=== PATIENT | female | born 1965 | race Caucasian/White ===

== ENCOUNTER 2024-11-16 22:10 | Inpatient (IN) | payer BC ==
[~2024-11-16] VITALS: Ht 160 cm; Wt 88.2 kg
[2024-11-17 00:03] LABS: HEMATOCRIT. 41.4 % (36.0-48.0); HEMOGLOBIN. 12.7 g/dL (12.0-16.0); MEAN CORPUSCULAR HGB CONC 30.7 g/dL (31.0-37.0); MEAN CORPUSCULAR VOLUME 84.6 fL (81.0-99.0); MEAN PLATELET VOLUME 8.5 fl (7.4-10.4); PLATELET 294 x1000/uL (130-400); RED BLOOD CELL COUNT 4.89 mill/uL (4.2-5.4); RED CELL DISTRIBUTION WIDTH 15.8 % (11.6-14.6); WHITE BLOOD COUNT 23.5 x1000/uL (4.5-11.0)
[2024-11-17 00:05] LABS: DIFFERENTIAL COMMENT 1
[2024-11-17 00:10] LABS: INR 1.2; PARTIAL THROMBOPLASTIN TIME 29.6 sec (23.4-31.0)
[2024-11-17 00:13] LABS: CHLORIDE 90 mEq/L (98-107); POTASSIUM 3.8 mEq/L (3.5-5.1); SODIUM 127 mEq/L (136-145)
[2024-11-17 00:14] LABS: CALCIUM 9.4 mg/dL (8.7-10.4)
[2024-11-17 00:19] LABS: CREATININE 1.5 mg/dL (0.6-1.0); UREA NITROGEN BLOOD 29 mg/dL (9-23)
[2024-11-17 00:22] LABS: ETHANOL BLOOD < 10 mg/dL (<10)
[2024-11-17 00:25] LABS: CARBON DIOXIDE < 10 mEq/L (21-32)
[2024-11-17 00:26] LABS: GLUCOSE 607 mg/dL (70-105); TROPONIN I HIGH SENSITIVITY 117 ng/L (3.0-34)
[2024-11-17] MEDS: SODIUM CHLORIDE 0.9% (SEPSIS BOLUS) IV NR (01:01)
[2024-11-17] MEDS: PIPERACILLIN/TAZO 3.375G/50ML 50 ML IV NR (01:01)
[2024-11-17] MEDS ORDERED: HYDROCODONE/ACETAMINOPHEN 5/325MG TABLET PO PRN (01:15)
[2024-11-17] MEDS ORDERED: CLONIDINE 0.1MG TABLET PO PRN ×2 (01:15→11:00)
[2024-11-17] MEDS ORDERED: DOCUSATE SODIUM 100MG CAPSULE PO PRN (01:15)
[2024-11-17] MEDS ORDERED: POTASSIUM CHLORIDE 20MEQ TABLET SR PO PRN (01:15)
[2024-11-17] MEDS ORDERED: ACETAMINOPHEN 325MG TABLET PO PRN ×2 (01:15→11:00)
[2024-11-17] MEDS ORDERED: MAGNESIUM/ALUMINUM HYDROXIDE/SIMETHICONE 30ML UDC PO PRN (01:15)
[2024-11-17] MEDS ORDERED: DEXTROSE 50% WATER 50ML SYRINGE IV PRN ×5 (01:15→11:00)
[2024-11-17] MEDS ORDERED: ONDANSETRON HCL 4MG/2ML INJ IV PRN ×2 (01:15→11:00)
[2024-11-17] MEDS ORDERED: IPRATROPIUM/ALBUTEROL 0.5-3(2.5)MG/3ML NEB HHN PRN ×2 (01:15→11:00)
[2024-11-17] MEDS ORDERED: KCL 20MEQ/100ML PREMIX 100 ML IV PRN ×2 (01:30→11:00)
[2024-11-17] MEDS ORDERED: POTASSIUM CHLORIDE 40 MEQ in SODIUM CHLORIDE 0.9% 230 ML IV PRN (01:30)
[2024-11-17] MEDS ORDERED: INSULIN REGULAR 100U/100ML PMX 100 ML IV SCH ×2 (01:30→12:00)
[2024-11-17] MEDS ORDERED: MAGNESIUM 2 G PREMIX 50 ML IV PRN (01:30)
[2024-11-17] MEDS ORDERED: SODIUM PHOSPHATE 15 MMOL in SODIUM CHLORIDE 0.9% 245 ML IV PRN ×2 (01:30→11:00)
[2024-11-17] MEDS ORDERED: BLOOD SUGAR DIAGNOSTIC STRIP TEST SCH ×2 (01:30→09:00)
[2024-11-17] MEDS ORDERED: INSULIN REGULAR (DRIP) 100 UNITS in SODIUM CHLORIDE 0.9% 99 ML IV SCH (01:30)
[2024-11-17] MEDS: SODIUM CHLORIDE 0.9% 1,000 ML IV SCH ×3 (01:30→12:30)
[2024-11-17] MEDS ORDERED: BLOOD SUGAR DIAGNOSTIC STRIP TEST PRN ×3 (01:30→11:00)
[2024-11-17 02:03] LABS: CARBON DIOXIDE 11 mEq/L (21-32); CHLORIDE 92 mEq/L (98-107); POTASSIUM 3.8 mEq/L (3.5-5.1); SODIUM 128 mEq/L (136-145)
[2024-11-17 02:04] LABS: CALCIUM 9.2 mg/dL (8.7-10.4)
[2024-11-17 02:08] LABS: CREATININE 1.5 mg/dL (0.6-1.0); INR 1.2; PROTHROMBIN TIME 12.8 sec (9.6-11.0)
[2024-11-17 02:09] LABS: UREA NITROGEN BLOOD 32 mg/dL (9-23)
[2024-11-17 02:11] LABS: BETA HYDROXYBUTYRATE 8.2 mMol/L (0.0-0.3)
[2024-11-17 02:31] LABS: BG BASE EXCESS -17.9 mmol/L (-2.0-3.0); BG CARBOXYHEMOGLOBIN 0.6 % (0.5-1.5); BG DEOXYHEMOGLOBIN 7.9 % (0.0-5.0); BG FRACTION INSPIRED OXYGEN 21; BG HCO3 ACT 7.9 mmol/L (21.0-28.0); BG METHEMOGLOBIN 0.3 % (0.5-1.5); BG OXYHEMOGLOBIN 91.2 % (94.0-98.0); BG PCO2 20.7 mmHg (32.0-45.0); BG PH 7.201 (7.350-7.450); BG PO2 70.4 mmHg (83.0-108.0); BG SAMPLE SITE RIGHT BRACHIAL; BG TOTAL HEMOGLOBIN 14.8 g/dL (12.0-16.0); BG VENT MODE ROOM AIR
[2024-11-17] MEDS: SODIUM BICARBONATE 8.4% 50MEQ/50ML SYR IV NR (02:53)
[2024-11-17] MEDS: INSULIN REGULAR (HUMULIN R) 1000UNITS/10ML VIAL IV NR (02:53)
[2024-11-17] MEDS: BLOOD SUGAR DIAGNOSTIC STRIP TEST SCH ×2 (02:53→12:30)
[2024-11-17 02:56] LABS: GLUCOSE 610 mg/dL (70-105)
[2024-11-17] MEDS: VANCOMYCIN 1G PREMIX 200 ML IV NR (02:58)
[2024-11-17] MEDS: INSULIN REGULAR 100U/100ML PMX 100 ML IV SCH ×2 (03:29→15:24)
[2024-11-17] MEDS: DEXT 5%/0.9% NACL 1,000 ML IV SCH ×2 (03:49→20:07)
[2024-11-17] MEDS: ASPIRIN 325MG EC TABLET PO NR (03:52)
[2024-11-17] MEDS: SODIUM BICARBONATE 8.4% 50MEQ/50ML SYR IV ONE (04:20)
[2024-11-17] MEDS: DILTIAZEM HCL 5MG/ML 5ML VIAL IV ONE (05:52)
[2024-11-17] MEDS: SODIUM BICARBONATE 100 MEQ in DEXTROSE 5% WATER 900 ML IV SCH (05:54)
[2024-11-17] MEDS: ENOXAPARIN 40MG/0.4ML SYR SUBCUT SCH (06:53)
[2024-11-17] MEDS ORDERED: NALOXONE HCL 0.4MG/ML VIAL IV PRN (07:30)
[2024-11-17 08:10] LABS: PLATELET ESTIMATE NORMAL
[2024-11-17 08:11] LABS: TOXIC VACUOLATION FEW
[2024-11-17] MEDS: INSULIN LISPRO 100 UNITS/ML SUBCUT SCH (08:20)
[2024-11-17] MEDS: CEFTRIAXONE 1GM/50ML 50 ML IV SCH (08:43)
[2024-11-17 09:26] LABS: CALCIUM 7.5 mg/dL (8.7-10.4)
[2024-11-17 09:31] LABS: CREATININE 1.2 mg/dL (0.6-1.0)
[2024-11-17 09:49] LABS: POTASSIUM 2.7 mEq/L (3.5-5.1)
[2024-11-17] MEDS ORDERED: CEFTRIAXONE 1GM/50ML 50 ML IV SCH (10:00)
[2024-11-17] MEDS: KCL 20MEQ/100ML PREMIX 100 ML IV PRN (11:05)
[2024-11-17] MEDS ORDERED: INSULIN REGULAR (HUMULIN R) 1000UNITS/10ML VIAL IV SCH (12:00)
[2024-11-17] MEDS: PANTOPRAZOLE SODIUM 40 MG/VIAL IV SCH (13:42)
[2024-11-17 13:52] LABS: BG CARBOXYHEMOGLOBIN 0.5 % (0.5-1.5); BG DEOXYHEMOGLOBIN 5.7 % (0.0-5.0); BG FRACTION INSPIRED OXYGEN 40; BG HCO3 ACT 19.7 mmol/L (21.0-28.0); BG METHEMOGLOBIN 0.3 % (0.5-1.5); BG OXYGEN SATURATION 94.3 % (94.0-98.0); BG OXYHEMOGLOBIN 93.5 % (94.0-98.0); BG PCO2 35.2 mmHg (32.0-45.0); BG PH 7.366 (7.350-7.450); BG PO2 69.9 mmHg (83.0-108.0); BG SAMPLE SITE RIGHT BRACHIAL; BG TOTAL HEMOGLOBIN 10.6 g/dL (12.0-16.0); BG VENT MODE NASAL CANNULA
[2024-11-17 14:58] LABS: CLARITY URINE TURBID (CLEAR); COLOR URINE YELLOW (YELLOW); GLUCOSE URINE 3+ (NEGATIVE); KETONES URINE 3+ (NEGATIVE); LEUKOCYTE ESTERASE URINE 1+ (NEGATIVE); NITRITE URINE NEGATIVE (NEGATIVE); OCCULT BLOOD URINE TRACE (NEGATIVE); PH URINE 5.5 (4.5-8.0); PROTEIN URINE 2+ (NEGATIVE); SPECIFIC GRAVITY URINE 1.027 (1.005-1.030)
[2024-11-17 15:04] LABS: COARSE GRANULAR CASTS URINE 0-5 /lpf
[2024-11-17 15:05] LABS: BACTERIA URINE 4+; SQUAMOUS EPITHELIAL CELL URINE 1+ /lpf (RARE/1+); WBC URINE 25-50 /hpf (0-2); YEAST URINE 1+
[2024-11-17 16:25] LABS: HEMATOCRIT. 32.5 % (36.0-48.0); HEMOGLOBIN. 10.6 g/dL (12.0-16.0); MEAN CORPUSCULAR HEMOGLOBIN 25.9 pg (28.0-32.0); MEAN CORPUSCULAR HGB CONC 32.5 g/dL (31.0-37.0); MEAN CORPUSCULAR VOLUME 79.7 fL (81.0-99.0); MEAN PLATELET VOLUME 8.1 fl (7.4-10.4); PLATELET 248 x1000/uL (130-400); RED BLOOD CELL COUNT 4.07 mill/uL (4.2-5.4); RED CELL DISTRIBUTION WIDTH 15.4 % (11.6-14.6); WHITE BLOOD COUNT 16.9 x1000/uL (4.5-11.0)
[2024-11-17 16:28] LABS: D-DIMER 1.15 mg/L FEU (<0.50); INR 1.1; PROTHROMBIN TIME 12.4 sec (9.6-11.0)
[2024-11-17 16:34] LABS: CHLORIDE 102 mEq/L (98-107); POTASSIUM 3.3 mEq/L (3.5-5.1)
[2024-11-17 16:35] LABS: SODIUM 135 mEq/L (136-145)
[2024-11-17 16:38] LABS: CALCIUM 7.8 mg/dL (8.7-10.4); CARBON DIOXIDE 19 mEq/L (21-32)
[2024-11-17 16:42] LABS: CREATINE KINASE MB FRACTION 7.6 ng/mL (0.5-3.6)
[2024-11-17 16:43] LABS: GLUCOSE 290 mg/dL (70-105); UREA NITROGEN BLOOD 30 mg/dL (9-23)
[2024-11-17 16:45] LABS: ALANINE AMINOTRANSFERASE 13 IU/L (10-49); ALBUMIN 2.8 g/dL (3.2-4.8); ASPARTATE AMINOTRANSFERASE 14 IU/L (<34); BILIRUBIN TOTAL 0.2 mg/dL (0.1-1.0); CREATINE KINASE 156 IU/L (34-145)
[2024-11-17 16:46] LABS: BETA HYDROXYBUTYRATE 3.4 mMol/L (0.0-0.3); PROTEIN TOTAL 4.6 g/dL (6.0-8.3)
[2024-11-17 16:47] LABS: BILIRUBIN DIRECT < 0.1 mg/dL (<=3.0)
[2024-11-17 16:49] LABS: DIFFERENTIAL COMMENT 1
[2024-11-17 17:33] LABS: CHLORIDE 103 mEq/L (98-107); POTASSIUM 4.1 mEq/L (3.5-5.1); SODIUM 137 mEq/L (136-145)
[2024-11-17 17:34] LABS: CARBON DIOXIDE 22 mEq/L (21-32)
[2024-11-17 17:41] LABS: PHOSPHORUS 2.8 mg/dL (2.5-4.9)
[2024-11-17 18:10] LABS: PLATELET ESTIMATE NORMAL
[2024-11-17 18:28] LABS: TROPONIN I HIGH SENSITIVITY < 4 ng/L (3.0-34)
[2024-11-17 21:00] VITALS: BP_SYST 122; BP_SYST 97; BP_DIAS 50; BP_DIAS 84; PULSE 88; PULSE 99; RESP 18; RESP 26; TEMP 36.9184; O2SAT 96
[2024-11-17 21:15] VITALS: BP 97/45; PULSE 82; RESP 22; O2SAT 94
[2024-11-17 21:30] VITALS: BP 93/44; PULSE 86; RESP 28; O2SAT 92
[2024-11-17 21:45] VITALS: BP 96/53; PULSE 85; RESP 27; O2SAT 90
[2024-11-17 22:00] VITALS: BP 99/58; PULSE 87; RESP 16; TEMP 36.9474; O2SAT 87
[2024-11-17 23:00] VITALS: BP 108/57; PULSE 88; RESP 18; O2SAT 96
[2024-11-18] VITALS (55 sets, daily range): BP systolic 48–129; BP diastolic 27–79; PULSE 74–87; RESP 13–34; TEMP 36.50292–37.05852; O2SAT 91–99
[2024-11-18 00:22] LABS: CHLORIDE 105 mEq/L (98-107); SODIUM 137 mEq/L (136-145)
[2024-11-18 00:23] LABS: CALCIUM 7.7 mg/dL (8.7-10.4); CARBON DIOXIDE 24 mEq/L (21-32)
[2024-11-18 00:28] LABS: CREATININE 0.8 mg/dL (0.6-1.0); GLUCOSE 251 mg/dL (70-105); UREA NITROGEN BLOOD 28 mg/dL (9-23)
[2024-11-18 00:30] LABS: PHOSPHORUS 1.3 mg/dL (2.5-4.9)
[2024-11-18] MEDS: VANCOMYCIN 1.25GM PMX (XELLIA) 250 ML IV NR (00:31)
[2024-11-18] MEDS: MAGNESIUM 2 G PREMIX 50 ML IV PRN (00:49)
[2024-11-18] MEDS ORDERED: DEXTROSE 50% WATER 50ML SYRINGE IV PRN (01:15)
[2024-11-18] MEDS: INSULIN GLARGINE 100 UNITS/ML SUBCUT NR (01:30)
[2024-11-18] MEDS: POTASSIUM CHLORIDE 40 MEQ in SODIUM CHLORIDE 0.9% 230 ML IV PRN (02:42)
[2024-11-18] MEDS: SODIUM PHOSPHATE 15 MMOL in DEXT 5% WATER 245 ML IV PRN (05:31)
[2024-11-18 06:06] LABS: CARBON DIOXIDE 21 mEq/L (21-32); CHLORIDE 104 mEq/L (98-107); POTASSIUM 3.1 mEq/L (3.5-5.1); SODIUM 137 mEq/L (136-145)
[2024-11-18 06:07] LABS: CALCIUM 8.1 mg/dL (8.7-10.4)
[2024-11-18 06:10] LABS: TRIGLYCERIDE 291 mg/dL (0-150)
[2024-11-18 06:11] LABS: HEMATOCRIT. 32.4 % (36.0-48.0); HEMOGLOBIN. 10.8 g/dL (12.0-16.0); MEAN CORPUSCULAR HEMOGLOBIN 26.4 pg (28.0-32.0); MEAN CORPUSCULAR HGB CONC 33.3 g/dL (31.0-37.0); MEAN CORPUSCULAR VOLUME 79.1 fL (81.0-99.0); MEAN PLATELET VOLUME 8.2 fl (7.4-10.4); PLATELET 247 x1000/uL (130-400); RED BLOOD CELL COUNT 4.09 mill/uL (4.2-5.4); RED CELL DISTRIBUTION WIDTH 15.5 % (11.6-14.6); WHITE BLOOD COUNT 12.2 x1000/uL (4.5-11.0)
[2024-11-18 06:12] LABS: CREATININE 0.7 mg/dL (0.6-1.0); GLUCOSE 275 mg/dL (70-105); PROTEIN TOTAL 4.5 g/dL (6.0-8.3); UREA NITROGEN BLOOD 27 mg/dL (9-23)
[2024-11-18 06:13] LABS: ALBUMIN 2.8 g/dL (3.2-4.8); LDL CHOLESTEROL 53 mg/dL (5-100); T4 FREE 1.07 ng/dL (0.89-1.76)
[2024-11-18 06:14] LABS: ALANINE AMINOTRANSFERASE 15 IU/L (10-49); ASPARTATE AMINOTRANSFERASE 18 IU/L (<34); BILIRUBIN TOTAL 0.2 mg/dL (0.1-1.0); CHOLESTEROL 141 mg/dL (<200); HDL CHOLESTEROL < 20 mg/dL (>65); PHOSPHORUS 2.1 mg/dL (2.5-4.9)
[2024-11-18 06:15] LABS: BILIRUBIN DIRECT < 0.1 mg/dL (<=3.0)
[2024-11-18 06:17] LABS: TROPONIN I HIGH SENSITIVITY 307 ng/L (3.0-34)
[2024-11-18] MEDS: BLOOD SUGAR DIAGNOSTIC STRIP TEST SCH (06:30)
[2024-11-18 07:33] LABS: DIFFERENTIAL COMMENT 1
[2024-11-18] MEDS: INSULIN LISPRO 100 UNITS/ML SUBCUT SCH ×2 (08:14→22:04)
[2024-11-18] MEDS: CEFTRIAXONE 1GM/50ML 50 ML IV SCH (11:00)
[2024-11-18 11:14] LABS: *AMPHETAMINES SCREEN URINE NEGATIVE (NEGATIVE)
[2024-11-18 11:16] LABS: *BARBITURATES SCREEN URINE NEGATIVE (NEGATIVE); *BENZODIAZEPINES SCREEN URINE NEGATIVE (NEGATIVE); *COCAINE SCREEN URINE NEGATIVE (NEGATIVE); CANNABINOID URINE SCREEN NEGATIVE (NEGATIVE); ECSTASY MDMA SCREEN URINE NEGATIVE (NEGATIVE); METHADONE URINE SCREEN NEGATIVE (NEGATIVE); OPIATES URINE SCREEN NEGATIVE (NEGATIVE); PHENCYCLIDINE URINE SCREEN NEGATIVE (NEGATIVE)
[2024-11-18] MEDS ORDERED: VANCOMYCIN 500MG PREMIX 100 ML IV SCH (12:00)
[2024-11-18] MEDS: MENTHOL/LANOLIN/CALAMINE/ZN OX OINT 71GM TOP SCH (12:30)
[2024-11-18] MEDS: NYSTATIN 100,000 UNITS/GM CREAM 15GM TOP SCH (12:30)
[2024-11-18 16:06] LABS: PLATELET ESTIMATE NORMAL
[2024-11-18] MEDS: VANCOMYCIN 500MG PREMIX 100 ML IV SCH (21:42)
[2024-11-18] MEDS: INSULIN GLARGINE 100 UNITS/ML SUBCUT SCH (22:05)
[2024-11-19] VITALS (52 sets, daily range): BP systolic 82–135; BP diastolic 47–77; PULSE 72–89; RESP 11–35; TEMP 36.114–37.05852; O2SAT 92–99
[2024-11-19 03:04] LABS: CHLORIDE 101 mEq/L (98-107); SODIUM 132 mEq/L (136-145)
[2024-11-19 03:05] LABS: CARBON DIOXIDE 23 mEq/L (21-32)
[2024-11-19 03:06] LABS: CALCIUM 8.1 mg/dL (8.7-10.4)
[2024-11-19 03:07] LABS: BASOPHILS % 0.4 % (0.0-2.0); DIFFERENTIAL COMMENT 0; EOSINOPHILS % 1.4 % (0.0-5.0); HEMATOCRIT. 32.9 % (36.0-48.0); LYMPHOCYTES % 7.1 % (20.0-50.0); MEAN CORPUSCULAR HEMOGLOBIN 26.4 pg (28.0-32.0); MEAN CORPUSCULAR HGB CONC 33.4 g/dL (31.0-37.0); MEAN PLATELET VOLUME 8.2 fl (7.4-10.4); MONOCYTES % 4.1 % (2.0-8.0); PLATELET 207 x1000/uL (130-400); RED BLOOD CELL COUNT 4.17 mill/uL (4.2-5.4); RED CELL DISTRIBUTION WIDTH 15.4 % (11.6-14.6); WHITE BLOOD COUNT 9.1 x1000/uL (4.5-11.0)
[2024-11-19 03:10] LABS: CREATININE 0.6 mg/dL (0.6-1.0); GLUCOSE 289 mg/dL (70-105)
[2024-11-19 03:11] LABS: UREA NITROGEN BLOOD 23 mg/dL (9-23)
[2024-11-19 03:12] LABS: ALANINE AMINOTRANSFERASE 24 IU/L (10-49); ALBUMIN 2.8 g/dL (3.2-4.8); ASPARTATE AMINOTRANSFERASE 34 IU/L (<34)
[2024-11-19 03:13] LABS: BILIRUBIN TOTAL < 0.2 mg/dL (0.1-1.0); PHOSPHORUS 1.7 mg/dL (2.5-4.9); PROTEIN TOTAL 4.4 g/dL (6.0-8.3)
[2024-11-19] MEDS: AZITHROMYCIN 500MG/250ML 250 ML IV SCH (05:57)
[2024-11-19 06:30] LABS: HEMATOCRIT. 31.4 % (36.0-48.0); HEMOGLOBIN. 10.4 g/dL (12.0-16.0); MEAN CORPUSCULAR HEMOGLOBIN 26.2 pg (28.0-32.0); MEAN CORPUSCULAR HGB CONC 33.1 g/dL (31.0-37.0); MEAN CORPUSCULAR VOLUME 79.2 fL (81.0-99.0); MEAN PLATELET VOLUME 7.8 fl (7.4-10.4); PLATELET 229 x1000/uL (130-400); RED BLOOD CELL COUNT 3.96 mill/uL (4.2-5.4); RED CELL DISTRIBUTION WIDTH 15.3 % (11.6-14.6); WHITE BLOOD COUNT 8.1 x1000/uL (4.5-11.0)
[2024-11-19 06:44] LABS: DIFFERENTIAL COMMENT 1
[2024-11-19 06:58] LABS: ALANINE AMINOTRANSFERASE 22 IU/L (10-49); ALBUMIN 2.8 g/dL (3.2-4.8); ASPARTATE AMINOTRANSFERASE 17 IU/L (<34)
[2024-11-19 06:59] LABS: BILIRUBIN TOTAL 0.2 mg/dL (0.1-1.0); PROTEIN TOTAL 4.4 g/dL (6.0-8.3)
[2024-11-19 07:10] LABS: BILIRUBIN DIRECT < 0.1 mg/dL (<=3.0)
[2024-11-19] MEDS: CALCIUM GLUCONATE 1GM PREMIX 50 ML IV NR (11:26)
[2024-11-19] MEDS: VANCOMYCIN 1.25GM PMX (XELLIA) 250 ML IV SCH (11:26)
[2024-11-19] MEDS: SODIUM PHOSPHATE 20 MMOL in DEXT 5% WATER 243.3333 ML IV NR (16:26)
[2024-11-19 19:50] LABS: MICROCYTOSIS 1+; PLATELET ESTIMATE NORMAL
[2024-11-19] MEDS: METOPROLOL TARTRATE 25MG TABLET PO SCH (21:00)
[2024-11-19] MEDS: INSULIN GLARGINE 100 UNITS/ML SUBCUT SCH (22:08)
[2024-11-20] VITALS (12 sets, daily range): BP systolic 94–130; BP diastolic 52–81; PULSE 69–84; RESP 18–33; TEMP 36.05844–37.05852; O2SAT 94–100
[2024-11-20] MEDS: ACETAMINOPHEN 325MG TABLET PO PRN (02:13)
[2024-11-20 07:26] LABS: CHLORIDE 101 mEq/L (98-107); POTASSIUM 3.4 mEq/L (3.5-5.1); SODIUM 136 mEq/L (136-145)
[2024-11-20 07:27] LABS: CALCIUM 8.3 mg/dL (8.7-10.4); CARBON DIOXIDE 29 mEq/L (21-32)
[2024-11-20 07:32] LABS: CREATININE 0.5 mg/dL (0.6-1.0); GLUCOSE 270 mg/dL (70-105); UREA NITROGEN BLOOD 16 mg/dL (9-23)
[2024-11-20 07:34] LABS: PHOSPHORUS 2.8 mg/dL (2.5-4.9)
[2024-11-20 07:36] LABS: T4 FREE 1.03 ng/dL (0.89-1.76)
[2024-11-20 07:37] LABS: HEMATOCRIT. 32.7 % (36.0-48.0); HEMOGLOBIN. 10.3 g/dL (12.0-16.0); MEAN CORPUSCULAR HEMOGLOBIN 25.3 pg (28.0-32.0); MEAN CORPUSCULAR HGB CONC 31.6 g/dL (31.0-37.0); MEAN CORPUSCULAR VOLUME 80.1 fL (81.0-99.0); MEAN PLATELET VOLUME 7.4 fl (7.4-10.4); PLATELET 211 x1000/uL (130-400); RED BLOOD CELL COUNT 4.08 mill/uL (4.2-5.4); RED CELL DISTRIBUTION WIDTH 15.2 % (11.6-14.6); THYROID STIMULATING HORMONE 2.95 uIU/mL (0.55-4.78); WHITE BLOOD COUNT 7.5 x1000/uL (4.5-11.0)
[2024-11-20 07:52] LABS: DIFFERENTIAL COMMENT 1
[2024-11-20] MEDS: POTASSIUM CHLORIDE 20MEQ TABLET SR PO NR (12:49)
[2024-11-20] MEDS: GUAIFENESIN 200MG 200 MG TABLET PO PRN (18:15)
[2024-11-20] MEDS: CEFTRIAXONE 2GM/50ML 50 ML IV SCH (18:17)
[2024-11-20 19:08] LABS: ANISOCYTOSIS 1+; PLATELET ESTIMATE NORMAL
[2024-11-20] MEDS: DOXYCYCLINE HYCLATE 100MG CAPSULE PO SCH (21:21)
[2024-11-20] MEDS: DOCUSATE SODIUM 100MG CAPSULE PO PRN (21:21)
[2024-11-21] VITALS (12 sets, daily range): BP systolic 104–133; BP diastolic 55–77; PULSE 70–85; RESP 13–24; TEMP 36.44736–37.11408; O2SAT 82–99
[2024-11-21 07:35] LABS: CALCIUM 8.2 mg/dL (8.7-10.4); CHLORIDE 101 mEq/L (98-107); POTASSIUM 3.7 mEq/L (3.5-5.1); SODIUM 138 mEq/L (136-145)
[2024-11-21 07:36] LABS: CARBON DIOXIDE 31 mEq/L (21-32)
[2024-11-21 07:41] LABS: CREATININE 0.6 mg/dL (0.6-1.0); GLUCOSE 253 mg/dL (70-105); UREA NITROGEN BLOOD 15 mg/dL (9-23)
[2024-11-21 08:07] LABS: HEMOGLOBIN. 11.2 g/dL (12.0-16.0); MEAN CORPUSCULAR HEMOGLOBIN 26.4 pg (28.0-32.0); MEAN CORPUSCULAR HGB CONC 32.9 g/dL (31.0-37.0); MEAN CORPUSCULAR VOLUME 80.1 fL (81.0-99.0); MEAN PLATELET VOLUME 7.5 fl (7.4-10.4); PLATELET 199 x1000/uL (130-400); RED BLOOD CELL COUNT 4.24 mill/uL (4.2-5.4); WHITE BLOOD COUNT 8.8 x1000/uL (4.5-11.0)
[2024-11-21 08:48] LABS: DIFFERENTIAL COMMENT 1
[2024-11-21 15:00] LABS: PLATELET ESTIMATE NORMAL
[2024-11-21] MEDS: INSULIN GLARGINE 100 UNITS/ML SUBCUT SCH (21:32)
[2024-11-22] VITALS (13 sets, daily range): BP systolic 100–136; BP diastolic 58–77; PULSE 69–87; RESP 16–29; TEMP 36.22512–36.89184; O2SAT 85–98
[2024-11-23] VITALS (7 sets, daily range): BP systolic 99–143; BP diastolic 52–70; PULSE 72–91; RESP 15–20; TEMP 35.78064–37.11408; O2SAT 95–99
[2024-11-23 16:57] LABS: BASOPHILS % 0.2 % (0.0-2.0); DIFFERENTIAL COMMENT 0; EOSINOPHILS % 1.5 % (0.0-5.0); HEMATOCRIT. 35.5 % (36.0-48.0); HEMOGLOBIN. 11.6 g/dL (12.0-16.0); LYMPHOCYTES % 9.3 % (20.0-50.0); MEAN CORPUSCULAR HEMOGLOBIN 26.1 pg (28.0-32.0); MEAN CORPUSCULAR HGB CONC 32.7 g/dL (31.0-37.0); MEAN CORPUSCULAR VOLUME 79.7 fL (81.0-99.0); MEAN PLATELET VOLUME 7.9 fl (7.4-10.4); MONOCYTES % 8.2 % (2.0-8.0); NEUTROPHILS % 80.8 % (40.0-76.0); PLATELET 214 x1000/uL (130-400); RED BLOOD CELL COUNT 4.46 mill/uL (4.2-5.4); RED CELL DISTRIBUTION WIDTH 14.8 % (11.6-14.6); WHITE BLOOD COUNT 8.7 x1000/uL (4.5-11.0)
[2024-11-23 17:04] LABS: CHLORIDE 98 mEq/L (98-107); SODIUM 138 mEq/L (136-145)
[2024-11-23 17:05] LABS: CARBON DIOXIDE 34 mEq/L (21-32)
[2024-11-23 17:06] LABS: CALCIUM 8.6 mg/dL (8.7-10.4)
[2024-11-23 17:10] LABS: CREATININE 0.5 mg/dL (0.6-1.0); GLUCOSE 229 mg/dL (70-105)
[2024-11-23 17:11] LABS: UREA NITROGEN BLOOD 13 mg/dL (9-23)
[2024-11-23 21:25] LABS: TROPONIN I HIGH SENSITIVITY 49 ng/L (3.0-34)
[2024-11-24] VITALS (7 sets, daily range): BP systolic 104–139; BP diastolic 51–79; PULSE 73–86; RESP 18–20; TEMP 36.114–37.00296; O2SAT 96–100
[2024-11-24 07:10] LABS: CHLORIDE 99 mEq/L (98-107); POTASSIUM 3.5 mEq/L (3.5-5.1); SODIUM 138 mEq/L (136-145)
[2024-11-24 07:11] LABS: CALCIUM 8.4 mg/dL (8.7-10.4); CARBON DIOXIDE 31 mEq/L (21-32)
[2024-11-24 07:16] LABS: CREATININE 0.5 mg/dL (0.6-1.0); GLUCOSE 249 mg/dL (70-105); UREA NITROGEN BLOOD 12 mg/dL (9-23)
[2024-11-24 07:58] LABS: HEMATOCRIT. 31.7 % (36.0-48.0); HEMOGLOBIN. 10.3 g/dL (12.0-16.0); MEAN CORPUSCULAR HEMOGLOBIN 26.1 pg (28.0-32.0); MEAN CORPUSCULAR HGB CONC 32.6 g/dL (31.0-37.0); PLATELET 193 x1000/uL (130-400); RED BLOOD CELL COUNT 3.96 mill/uL (4.2-5.4); WHITE BLOOD COUNT 6.5 x1000/uL (4.5-11.0)
[2024-11-24 08:09] LABS: DIFFERENTIAL COMMENT 1
[2024-11-24] MEDS: POTASSIUM CHLORIDE 20MEQ/PACKET PO NR (12:07)
[2024-11-24 12:45] LABS: PHOSPHORUS 3.6 mg/dL (2.5-4.9)
[2024-11-24 17:00] LABS: POTASSIUM 4.2 mEq/L (3.5-5.1)
[2024-11-24 17:06] LABS: IRON 40 ug/dL (50-170)
[2024-11-24 17:09] LABS: TOTAL IRON BINDING CAPACITY 334 ug/dl (250-425)
[2024-11-24 17:18] LABS: FERRITIN 282 ng/mL (10-291)
[2024-11-24 17:19] LABS: FOLIC ACID (FOLATE) SERUM 12.93 ng/mL (>5.38); VITAMIN B12 SERUM 1353 pg/mL (211-911)
[2024-11-24] MEDS: INSULIN LISPRO 100 UNITS/ML SUBCUT SCH (17:22)
[2024-11-24] MEDS: SPIRONOLACTONE 25MG TABLET PO SCH (17:23)
[2024-11-24] MEDS: POTASSIUM CHLORIDE 20MEQ TABLET SR PO NR (17:24)
[2024-11-24] MEDS: MAGNESIUM 2 G PREMIX 50 ML IV NR (18:09)
[2024-11-24 20:32] LABS: PLATELET ESTIMATE NORMAL
[2024-11-24] MEDS: FUROSEMIDE 20MG/2ML VIAL IVP NR (20:46)
[2024-11-24] MEDS: INSULIN GLARGINE 100 UNITS/ML SUBCUT SCH (22:00)
[2024-11-24] MEDS: ATORVASTATIN CALCIUM 20MG TABLET PO SCH (22:02)
[2024-11-24] MEDS: METOPROLOL TARTRATE 25MG TABLET PO SCH (22:07)
[2024-11-25] VITALS: BP 111/61; PULSE 73; RESP 20; TEMP 36.78072; O2SAT 98
[2024-11-25 04:00] VITALS: BP 93/56; PULSE 75; RESP 18; TEMP 36.50292; O2SAT 98
[2024-11-25 08:00] VITALS: BP 97/51; PULSE 73; RESP 18; TEMP 37.05852; O2SAT 95
[2024-11-25 08:38] LABS: CALCIUM 8.8 mg/dL (8.7-10.4); CARBON DIOXIDE 36 mEq/L (21-32); CHLORIDE 99 mEq/L (98-107); POTASSIUM 4.1 mEq/L (3.5-5.1); SODIUM 139 mEq/L (136-145)
[2024-11-25 08:44] LABS: CREATININE 0.5 mg/dL (0.6-1.0); GLUCOSE 112 mg/dL (70-105); UREA NITROGEN BLOOD 8 mg/dL (9-23)
[2024-11-25 08:46] LABS: PHOSPHORUS 3.5 mg/dL (2.5-4.9)
[2024-11-25 08:53] LABS: HEMATOCRIT. 34.1 % (36.0-48.0); HEMOGLOBIN. 11.2 g/dL (12.0-16.0); MEAN CORPUSCULAR HEMOGLOBIN 26.2 pg (28.0-32.0); MEAN CORPUSCULAR HGB CONC 32.9 g/dL (31.0-37.0); MEAN CORPUSCULAR VOLUME 79.4 fL (81.0-99.0); MEAN PLATELET VOLUME 7.8 fl (7.4-10.4); PLATELET 229 x1000/uL (130-400); RED BLOOD CELL COUNT 4.29 mill/uL (4.2-5.4); RED CELL DISTRIBUTION WIDTH 14.8 % (11.6-14.6); WHITE BLOOD COUNT 6.6 x1000/uL (4.5-11.0)
[2024-11-25 08:59] LABS: DIFFERENTIAL COMMENT 1
[2024-11-25 12:00] VITALS: BP 102/52; PULSE 78; RESP 18; TEMP 37.11408; O2SAT 95
[2024-11-25] MEDS: MAGNESIUM OXIDE 400MG TABLET PO SCH (12:56)
[2024-11-25] MEDS: MAGNESIUM 2 G PREMIX 50 ML IV NR (13:57)
[2024-11-25 15:43] LABS: MICROCYTOSIS 1+; PLATELET ESTIMATE NORMAL
[2024-11-25 16:00] VITALS: BP 123/55; PULSE 80; RESP 18; TEMP 36.61404; O2SAT 98
[2024-11-25 20:00] VITALS: BP 104/50; PULSE 84; RESP 18; TEMP 36.72516; O2SAT 97
[2024-11-26] VITALS (7 sets, daily range): BP systolic 105–138; BP diastolic 54–74; PULSE 73–85; RESP 18–20; TEMP 36.22512–37.11408; O2SAT 93–99
[2024-11-26 07:18] LABS: BASOPHILS % 0.5 % (0.0-2.0); DIFFERENTIAL COMMENT 0; EOSINOPHILS % 1.7 % (0.0-5.0); HEMATOCRIT. 31.8 % (36.0-48.0); HEMOGLOBIN. 10.4 g/dL (12.0-16.0); LYMPHOCYTES % 14.1 % (20.0-50.0); MEAN CORPUSCULAR HEMOGLOBIN 26.2 pg (28.0-32.0); MEAN CORPUSCULAR HGB CONC 32.9 g/dL (31.0-37.0); MEAN CORPUSCULAR VOLUME 79.8 fL (81.0-99.0); MEAN PLATELET VOLUME 7.9 fl (7.4-10.4); MONOCYTES % 9.8 % (2.0-8.0); NEUTROPHILS % 73.9 % (40.0-76.0); PLATELET 204 x1000/uL (130-400); RED BLOOD CELL COUNT 3.98 mill/uL (4.2-5.4)
[2024-11-26 07:29] LABS: CARBON DIOXIDE 33 mEq/L (21-32); CHLORIDE 100 mEq/L (98-107); POTASSIUM 4.2 mEq/L (3.5-5.1); SODIUM 138 mEq/L (136-145)
[2024-11-26 07:30] LABS: CALCIUM 8.3 mg/dL (8.7-10.4)
[2024-11-26 07:34] LABS: CREATININE 0.6 mg/dL (0.6-1.0); GLUCOSE 264 mg/dL (70-105)
[2024-11-26 07:35] LABS: UREA NITROGEN BLOOD 11 mg/dL (9-23)
[2024-11-26] MEDS: THROAT LOZENGES-BENZOCAINE/MENTH/CETYLPYRD CL LOZENGES MM PRN (15:10)
[2024-11-27] VITALS: BP 103/67; PULSE 74; RESP 20; TEMP 36.9474; O2SAT 94
[2024-11-27 04:00] VITALS: BP 112/73; PULSE 77; RESP 20; TEMP 36.22512; O2SAT 95
[2024-11-27 08:19] VITALS: BP 112/67; PULSE 72; RESP 20; TEMP 36.00288; O2SAT 96
[2024-11-27 12:06] VITALS: BP 119/58; PULSE 81; RESP 18; TEMP 36.28068; O2SAT 96
[2024-11-27 13:07] LABS: CYC CITRULLINATED PEP IgG/IgA 1 units (0-19)
[2024-11-27 15:49] VITALS: BP 131/62; PULSE 66; RESP 20; TEMP 36.22512; O2SAT 96
[2024-11-27] MEDS ORDERED: ATOR20TA PO (18:26)
[2024-11-27] MEDS ORDERED: LANTUSUD SUBCUT (18:26)
[2024-11-27] MEDS ORDERED: LEVO750T68 MT (18:26)
[2024-11-28] VITALS: BP 111/68; PULSE 65; RESP 18; TEMP 36.114; O2SAT 97
[2024-11-28 04:00] VITALS: BP 126/74; PULSE 66; RESP 18; TEMP 36.22512; O2SAT 97
[2024-11-28 08:00] VITALS: BP 123/63; PULSE 73; RESP 22; TEMP 36.114; O2SAT 100
[2024-11-28 12:00] VITALS: BP 101/65; PULSE 80; RESP 18; TEMP 37.05852; O2SAT 98
[2024-11-28 13:06] LABS: GAD-65 AUTOANTIBODY < 5.0 U/mL (0.0-5.0)
[2024-11-28 19:22] VITALS: BP 140/67; PULSE 90; TEMP 97.7; O2SAT 98
== END 2024-11-28 20:45 | disposition home or self-care (01) | DRG 871 ==
LOC: ER 22:10 → EDBEDREQ 11-17 00:31 → MICUSO 11-17 01:21 → EDBEDREQSVC 11-17 01:29 → 5EST 11-19 18:20 → 7WST 11-22 23:44
PROVIDERS: ADMIT Family Medicine Adult Medicine; ATTEND Family Medicine Adult Medicine
DX: A40.3 Sepsis due to Streptococcus pneumoniae (principal); E10.10 Type 1 diabetes mellitus with ketoacidosis without coma; I21.4 Non-ST elevation (NSTEMI) myocardial infarction; J96.01 Acute respiratory failure with hypoxia; J18.9 Pneumonia, unspecified organism; B37.49 Other urogenital candidiasis; N17.9 Acute kidney failure, unspecified; E87.1 Hypo-osmolality and hyponatremia; Z20.822 Contact with and (suspected) exposure to COVID-19; E86.1 Hypovolemia; E87.6 Hypokalemia; I10 Essential (primary) hypertension; D72.810 Lymphocytopenia; D50.9 Iron deficiency anemia, unspecified; I49.3 Ventricular premature depolarization; B36.9 Superficial mycosis, unspecified; E83.42 Hypomagnesemia; E83.39 Other disorders of phosphorus metabolism; E78.1 Pure hyperglyceridemia; E66.811 Obesity, class 1; Z68.34 Body mass index [BMI] 34.0-34.9, adult; Z91.199 Patient's noncompliance with other medical treatment and regimen due to unspecified reason; Z91.148 Patient's other noncompliance with medication regimen for other reason; Z79.4 Long term (current) use of insulin
CPT/HCPCS: 36415; 36600; 71045; 80048; 80051; 80053; 80061; 80076; 80202; 80305; 80320; 81003; 82010; 82375; 82550; 82553; 82607; 82728; 82746; 82805; 82962; 83036; 83519; 83540; 83550; 83605; 83735; 83880; 83930; 84100; 84132; 84145; 84439; 84443; 84481; 84484; 85025; 85379; 86200; 87070; 87077; 87106; 87186; 87426; 87804; 93005; 93306; 93970; 97110; 97116; 97162; 99291; 99292; J0456; J0610; J0696; J1650; J1815; J1940; J2470; J2543; J3370; J3475; J3480; J3490; J7050; J7060; J7070; G0480